=== PATIENT | male | born 1960 | race Caucasian/White ===

== ENCOUNTER 2024-01-08 14:44 | Inpatient (IN) | payer OTHER, SELFPAY ==
[2024-01-08] VITALS (15 sets, daily range): BP systolic 109–141; BP diastolic 52–80; PULSE 98–120; BMI 25.9
[2024-01-08 12:21] LABS: ALT (SGPT) 53 U/L (0-50); AST (SGOT) 39 U/L (17-59); Albumin 4.1 g/dl (3.5-5.0); Alkaline Phosphatase 36 U/L (38-126); Blood Urea Nitrogen 44 mg/dl (9-20); Calcium 8.6 mg/dl (8.4-10.2); Carbon Dioxide 22 mmol/L (22-30); Chloride 103 mmol/L (98-107); Estimated Creatinine Clearance 92 ml/min; Glucose 254 mg/dl (70-99); Lipase 42 U/L (23-300); Potassium 4.4 mmol/L (3.5-5.1); Sodium 133 mmol/L (135-145); Total Bilirubin 0.5 mg/dl (0.2-1.3); Total Protein 5.8 g/dl (6.3-8.2); eGFR > 60.00
[2024-01-08 12:31] LABS: % Basophils 0.6 % (0-2); % Eosinophils 1.3 % (0-6); % Immature Granulocytes 0.8 % (0-0.5); % Lymphocytes 14.8 % (20.5-51.1); % Monocytes 5.9 % (1.7-9.3); % Neutrophils 76.6 % (42.2-75.2); Absolute Basophils 0.1 10^3/uL (0-0.2); Absolute Eosinophils 0.1 10^3/uL (0-0.7); Absolute Immature Granulocytes 0.1 10^3/uL (0-0.05); Absolute Lymphocytes 1.2 10^3/uL (1.2-3.4); Absolute Monocytes 0.5 10^3/uL (0.1-0.6); Absolute Neutrophils 6.3 10^3/uL (1.4-6.5); Hematocrit 21.5 % (39.0-52.0); Hemoglobin 7.8 g/dL (13.0-18.0); Mean Corp Hgb Conc. 36.3 g/dL (33.0-37.0); Mean Corpuscular Volume 85.3 fL (80.0-94.0); Mean Platelet Volume 11.2 fL (7.4-10.4); Nucleated Red Blood Cells % 0.5 % (-); Platelet Count 168 10^3/uL (130-400); Red Blood Cell Count 2.52 10^6/uL (4.70-6.10); Red Cell Dist. Width 12.8 % (11.5-14.5); White Blood Cell Count 8.2 10^3/uL (4.8-10.8)
[2024-01-08 12:32] LABS: Troponin I < 0.012 ng/ml
--- NOTE | 2024-01-08 13:55 | ED.GENMED ---
History of Present Illness
General
Chief Complaint: Breathing Problem
Source: patient
Time Seen by Provider: 01/08/24 12:02
History of Present Illness
History of Present Illness:
63-year-old male presents emergency room complaining of shortness of breath. Patient states he feels short breath particular with exertion. He denies any chest pain. He denies any vomiting. He has not noted any swelling. He does have a
significant history of coronary artery disease with a stent as well as peripheral vascular disease. He does take Brilinta because of stents. Those procedures were performed at [facility]. He denies any fever or cough.
Past History
Past History
ED Past Medical History: Hypercholesterolemia and Other (Bailey Palsy)
ED Past Surgical History: None
Social History
Tobacco: Smoker (cigars-1 daily)
Alcohol: None
Personal:
Living: with family
Employment: Employed
Phy Exam
Physical Exam
Physical Exam:
General: Awake, Alert, Oriented X3. No acute distress. Patient appears quite pale
Vitals: unremarkable
Head: Atraumatic
Eyes: Pupils equal, EOMI, pale conjunctiva
Throat: Airway intact, no exudates
Neck: Trachea midline
Lungs: Clear and equal b/l
Heart: Regular rate, no murmurs
Abd: Soft, Nontender, No pulsatile mass
Rectal: Scant stool in the vault but heme positive
Neuro: Nonfocal
Skin: Warm, dry, no rash
Extremities: pulses equal b/l, no edema
Scores
Heart Failure Risk
Heart Failure Risk Score: Not Applicable
Course
Orders/Labs/Results
Orders:
Orders
01/08/24 11:36
Electrocardiogram (*1) Urgent
Reason for Study: Shortness of Breath
EKG- Treatment ONCE
01/08/24 12:00
Complete Blood Count/With Diff Urgent
Comprehensive Metabolic Panel Urgent
Lipase Urgent
Troponin I Urgent
01/08/24 12:22
Type+Screen Urgent
01/08/24 13:33
CR Chest Single View Urgent
Reason For Exam: sob
01/08/24 13:44
Blood Bank Products [* Blood Bank Products] Urgent
Blood Bank Products: *Packed RBC Leuko(PRBC's)
Quantity: 1
Transfuse Today: Yes
Reason: Bleeding
Pantoprazole 80 mg/100 ml Nss [Protonix] 80 mg in 100 ml IV NOW
Pantoprazole [Protonix IV] 80 mg IV NOW STA
01/08/24 13:48
IV Insert/Care/Rem.- Treatment PRN
01/08/24 14:12
Admit/Transfer Patient As Directed
Co-Sign Provider:
Level of Care: Inpatient admission
Assign to:: Medical/Surgical
Physician / Group: Ashlie
Diagnosis: Symptomatic anemia
Reason for Hospitalization: Symptomatic anemia/Gi bleed
Expected length of stay greater than two midnights?: Yes
ELOS- Estimated Length of Stay in days: 5
I certify the patient meets the requirements for IP care: Yes
01/08/24 14:31
Code Status As Directed
Resuscitation Status: Full Code
01/08/24 14:44
Ondansetron Injectable [Zofran] 4 mg IV Q6HPRN PRN
01/08/24 Dinner
Full Liquids
Flush Continuous pump feedings with water (mL/hr): 25
01/08/24 18:00
Pravastatin Sodium [Pravachol] 40 mg PO QPM
01/08/24 22:00
Ezetimibe [Zetia] 10 mg PO HS
01/09/24 08:00
Escitalopram Oxalate [Lexapro] 10 mg PO DAILY
Lisinopril [Zestril] 5 mg PO DAILY
Abnormal Lab Results
01/08/24 01/08/24
12:00 12:22
RBC 2.52 L 10^6/uL
(4.70-6.10)
Hgb 7.8 L g/dL
(13.0-18.0)
Hct 21.5 L %
(39.0-52.0)
MPV 11.2 H fL
(7.4-10.4)
Abs Immat Gran (auto) 0.1 H 10^3/uL
(0-0.05)
Immature Gran % 0.8 H %
(0-0.5)
Neutrophils % 76.6 H %
(42.2-75.2)
Lymphocytes % 14.8 L %
(20.5-51.1)
Sodium 133 L mmol/L
(135-145)
BUN 44 H mg/dl
(9-20)
Glucose 254 H mg/dl
(70-99)
ALT 53 H U/L
(0-50)
Alkaline Phosphatase 36 L U/L
(38-126)
Total Protein 5.8 L g/dl
(6.3-8.2)
Crossmatch IS Only See Detail
01/08/24 12:00
01/08/24 12:00
Vital Signs
Initial and Last Documented VS:
Initial Vital Signs
Temp Pulse Resp Pulse Ox
98.0 F 129 18 99
01/08/24 11:32 01/08/24 11:32 01/08/24 11:32 01/08/24 11:32
Last Documented Vital Signs
Temp Pulse Resp Pulse Ox
98.0 F 129 18 100
01/08/24 11:32 01/08/24 11:32 01/08/24 11:32 01/08/24 12:07
MDM/Problems Addressed
Differential Diagnosis Includes:
Anemia, heart failure, PE. Once patient confirmed to be anemic differential includes upper GI bleed from gastritis or peptic ulcer or lower GI bleed
MDM/Problems Addressed:
Patient presents with shortness of breath with exertion. He has a resting tachycardia. He appears pale. Rectal exam is heme positive. Review of patient's labs show a hemoglobin of 7.8. BUN is elevated with a normal creatinine supporting the
concept of an upper GI bleed. Protonix bolus and infusion given. Unit of blood ordered. GI contacted. Patient will require hospitalization for careful monitoring.
*Radiology
Radiology exam reviewed: preliminary read by ED provider
*Pulse Oximetry
Patient hypoxic: no
*EKG
Interpreted by ED Provider?: Yes
Heart Rate: 112
Rate: tachycardiac
Rhythm: sinus tachycardia
[place]: normal axis
Interval: normal interval
QRS Pattern: normal QRS
Ischemia: no ischemia
*Eyelet Row Marker Interpretation
Rate: tachycardiac
Rhythm: sinus tachycardia
*Critical Care Note
Total Time (30-74mins, 75-104mins- exclusive of procedures): 35 min
comment:
Critical care statement: A total of 35 minutes of critical care time was provided for this patient. This includes management of unstable vital signs, evaluation of the patient at bedside, reviewing the patient's pertinent medical records, discussion
with consultants, review of old EKGs and review of pertinent medical records. This time with separate from time utilized to perform the aforementioned documented procedures
ED Attending Note
-
Portions of this chart may have been created with voice recognition software.� Occasional wrong word or��sound alike� substitutions may have occurred due to the inherent limitations of voice recognition software.
Discharge Plan
Departure
Patient Disposition: Admit
Date of Disposition: 01/08/24
Time of Disposition: 13:55
Admit to: IMU
Presentation/result/management discussed w/ accepting MD/DO: Hospitalist
Condition: Fair
Discharge Problem:
Acute upper GI bleed, Symptomatic anemia
Interventions
Interventions:
*Risk Screen - Suicide Last Done: 01/08/24 12:09
*General Assessment Last Done: 01/08/24 11:32
*Neglect/Abuse Screening Last Done: 01/08/24 12:09
ED- Fall Risk Assessment Last Done: 01/08/24 12:07
*ED COVID-19 Vaccine History Last Done: 01/08/24 11:32
ED- Cardiac Assessment Last Done: 01/08/24 12:07
ED- Pulmonary Assessment Last Done: 01/08/24 12:07
[2024-01-08] MEDS: PROTONIX 100 IV ×2 (14:06→23:58)
[2024-01-08] MEDS: PROTONIX IV 80 MG IV (14:06)
--- NOTE | 2024-01-08 14:20 | CON.GI ---
Consultation
-
Date/Time Consultation Requested: 01/08/24 at 2pm
Date/Time Consultation Performed: 01/08/24 at 2pm
Requesting Provider: Vicki
Performing Provider: Abbe
Reason for Consultation: anemia
Medical History
Chief Complaint / HPI
Chief Complaint: fatigue
History of Present Illness:
This patient is a 63-year-old man with a history of coronary artery disease with a stent on Brilinta and aspirin, hypercholesterolemia who has had 5 days of fatigue. He states it started approximately on Wednesday when he has had severe heartburn and
then since that time he is felt fatigued. He has had no hematemesis. He did have 2 episodes of vomiting earlier today when he felt fatigued there is no blood in the emesis. He has not had no blood per rectum. He does not take NSAIDs besides
aspirin. He has never had an endoscopy. He does not drink alcohol. He has never had a colonoscopy and he does not have a family history of GI cancers. He does not remember his last dose of Brilinta.
Past Medical History
Past Medical History: Other (Coronary artery disease with a stent, hypercholesterolemia, Puentes's palsy,)
Past Surgical History: None
Social History
Tobacco: Other (Daily cigar)
Alcohol: Occasional
Family History
Family History: Reviewed & Not Pertinent
Allergies / Home Medications
Allergy/AdvReac Type Severity Reaction Status Date / Time
No Known Allergies Allergy Verified 01/08/24 11:35
�Medication �Instructions �Recorded
prednisone 50 mg tablet 50 mg PO DAILY #7 tabs 05/28/19
Review of Systems
-
All other systems: A 12 pt ROS was Negative except as stated above in HPI
Vital Signs
Temp Pulse Resp Pulse Ox
98.0 F 129 18 100
01/08/24 11:32 01/08/24 11:32 01/08/24 11:32 01/08/24 12:07
Physical Exam
Exam
General: No Apparent Distress
HEENT: Anicteric
Cardiac: S1/S2
GI: Soft and Non Tender
Skin: Warm
Neuro: AO x 3
Psych: Calm
Results
WBC 8.2 10^3/uL (4.8-10.8) 01/08/24 12:00
Hgb 7.8 g/dL (13.0-18.0) L 01/08/24 12:00
Hct 21.5 % (39.0-52.0) L 01/08/24 12:00
MCV 85.3 fL (80.0-94.0) 01/08/24 12:00
Plt Count 168 10^3/uL (130-400) 01/08/24 12:00
Absolute Neuts (auto) 6.3 10^3/uL (1.4-6.5) 01/08/24 12:00
Sodium 133 mmol/L (135-145) L 01/08/24 12:00
Potassium 4.4 mmol/L (3.5-5.1) 01/08/24 12:00
Chloride 103 mmol/L (98-107) 01/08/24 12:00
Carbon Dioxide 22 mmol/L (22-30) 01/08/24 12:00
BUN 44 mg/dl (9-20) H 01/08/24 12:00
Creatinine 0.7 mg/dL (0.7-1.3) 01/08/24 12:00
Calcium 8.6 mg/dl (8.4-10.2) 01/08/24 12:00
Total Bilirubin 0.5 mg/dl (0.2-1.3) 01/08/24 12:00
AST 39 U/L (17-59) 01/08/24 12:00
ALT 53 U/L (0-50) H 01/08/24 12:00
Alkaline Phosphatase 36 U/L (38-126) L 01/08/24 12:00
Lipase 42 U/L (23-300) 01/08/24 12:00
Assessment / Plan
-
This patient is a 63-year-old man with a history of fatigue, emesis which was nonbloody and heartburn. He has a markedly elevated BUN to creatinine ratio and his presentation is most consistent with an upper GI bleed which is likely chronic in
nature at least 5 days. His hemoglobin is 7.8 which is quite lower than his normal baseline from what we have. For now I would do the following;
1. PPI drip
2. N.p.o.
3. Transfuse 1 to 2 units of packed red blood cells and monitor his hemoglobin
4. EGD on Wednesday as she likely has Brilinta on board as well. His will find out when his last dose was. If however he needs an endoscopy more urgently this will be done.
5. He eventually needs a colonoscopy as he has never had one
-
-
Thank you for consultation and allowing me to participate in the patient's care. Please call the communications attendant GI physician during the after hours with any questions or concerns.
--- NOTE | 2024-01-08 14:37 | HPS.HSE ---
Addendum entered and electronically signed by Stephen Dailey MD 01/08/24 15:11:
look like -pat had syncope or near Syncope while getting CXR but did not hit the ground.likely sec to hypovolimia and anemia
his BP was 120/62 immediately, HR 119;
did not get any fluid yet and did not start Blood transfusion
will place him on cardiac monitoring
give him 500 ml bolus and blood should start soon according to the nurse
continue NS at 100 ml/hr
check troponin
GI wants him be NPO.
All discussed with the nurse
Original Note:
Family Physician
-
Family Physician: Ángel Ramirez
Chief Complaint
-
Generalized weakness and exertional shortness of breath
History of Present Illness
63-year-old male with history of coronary artery disease status post 2 stent to LAD placed in November 2021, diabetes, hypertension, dyslipidemia presented to the hospital complaining of feeling tired with exertional shortness of breath and easy
fatigability notes a week ago.
Denies any chest pain, but the symptoms are worse with any kind exertional straining and sometimes he felt some palpitation, denies any syncope admit dizziness, no weakness or numbness in extremities, symptoms are progressively worsening and he was
debating came to the hospital few nights ago as he woke up with severe epigastric pain and burning but look like went away on its own and decided to not, he has been having dark stool but he blamed it on diet specially been eating a lot of beef this
week while prior to this week he had that his stool color has been normal.
Earlier this morning he felt very weak and lousy and the notes the first time this morning that he is pale look like he threw up what sound like coffee ground material couple times today, they went to urgent care and they basically directed him
to the ER.
Hemoglobin is 7.8 and the last time he had a workup in his portal was May 2023 and hemoglobin was more than 13.
Denies taking any NSAID, he smokes 1 cigar daily, occasionally drinks some wine, and spicy food regularly, denies any weight change.
The right EGD or colonoscopy, the last time he had a Cologuard was 2 years ago and basically was negative. Denies any extra stress or anxiety
Usual daily life issues.
He is awake, alert and oriented x 3 hold appropriate conversation, accompanied by the at the bedside. Seen by residential advisor already in the ER been planning EGD and or colonoscopy on Wednesday.
He is awake, alert and oriented x 3. Conversation, other than mild tachycardia his blood pressure in the good range, the unit of blood ordered also started on Protonix drip.
Medical History
Past Medical History
Past Medical History: Reports Other
Additional Past Medical History:
Past medical history reviewed:
Coronary artery disease status post 2 stent placed in November 2021 and LAD
Diabetes mellitus
Hypertension
Dyslipidemia
Mood disorder
Social history: lives with his , smokes 1 cigar daily, occasionally drinks some red wine and no drug and is independent.
Family history: Reviewed and noncontributory
Past Surgical History: Reports Other
Social History
Unable to obtain full social history at this time due to: Other
Family History
Family History: Other
Allergies / Home Medications
Allergies reflects when Allergies were last updated in [facility].
Home Medications with original date entered in [facility]
Allergy/Medication List:
Home medication. Recording from the patient and his
Jardiance 25 mg daily
Aspirin 81 mg daily
Vascepa 1 g tablet 62 g morning and 2 in the evening
Metformin 1000 mg twice daily
Brilinta 90 twice a day
Pravastatin 40 mg at the bedside
Lexapro 10 mg daily
Zetia 10 mg at bedside
Mometasone for rate once a day
Lisinopril 5 mg daily
Review of Systems
-
A 12 point ROS was completed and negative except as noted: Yes
Physical Exam
Vital Signs
Vital Signs
Temp Pulse Resp Pulse Ox
98.0 F 129 18 100
01/08/24 11:32 01/08/24 11:32 01/08/24 11:32 01/08/24 12:07
Physical exam:
General: Pale looking, awake, alert and oriented x3, not in distress and holds appropriate conversation.
HEENT: No active discharge, ecchymosis or bruising, moist lips, tongue and mucous membrane.
Eyes: No discharge or red conjunctiva, no nystagmus, pupils are reactive and equal
Neck:Supple, no JVD no bruit no goiter.
Respiratory: Normal AP contour and diameter, normal chest wall movement, normal respiratory effort, no respiratory distress,
Lungs: Good air entry bilaterally, no wheezing or rhonchi, no rales or crackles
Heart: S1, S2 regular, mildly tachycardic, no added sound.
Gastrointestinal: Positive bowel sounds, soft, nontender, no guarding or rigidity or organomegaly
Musculoskeletal: , no chest wall abnormality or tenderness. All joints and extremities have good range of motion, no muscle tenderness or any joint swelling or tenderness.
Extremities: No pitting edema, good peripheral pulses, good range of motion
Skin: Warm and dry, no ulceration, pale skin
Neurological: Awake, alert and oriented x3, no facial droop, speech clear and comprehensive, good muscle tone, normal sensory and motor function
Psychiatric: Normal mood, normal thought and judgment, normal affect,
Physical Exam
General: Other
Laboratory Results
-
01/08/24 12:00
01/08/24 12:00
Laboratory Results
Total Bilirubin 0.5 mg/dl (0.2-1.3) 01/08/24 12:00
AST 39 U/L (17-59) 01/08/24 12:00
ALT 53 U/L (0-50) H 01/08/24 12:00
Alkaline Phosphatase 36 U/L (38-126) L 01/08/24 12:00
Troponin I < 0.012 ng/ml 01/08/24 12:00
Lipase 42 U/L (23-300) 01/08/24 12:00
EKG shows sinus tachycardia rate around 112, SD 132, QTc 439 otherwise no acute abnormalities
Data Reviewed
-
Medical Tests (Nuc Med, Echo, EKG etc): Report Reviewed by me, Discussed with Patient and Discussed with Family
Lab Data: Labs Reviewed by me, Discussed with Patient and Discussed with Family
Old Records: Reviewed
Impression/Plan
-
IMPRESSION:
63-year-old male with history of CAD, hypertension dyslipidemia, presented to the hospital with exertional shortness of breath and fatigue, likely secondary to anemia, concern for GI blood loss anemia was concerning for upper GI.
Eliquis made to be considered, doubt cardiac causes.
Acute anemia, likely blood loss anemia
GI bleed
Symptomatic anemia
Sinus tachycardia
Exertional shortness of breath
Coronary artery disease status post 2 stent
Diabetes
Hypertension
Dyslipidemia
PLAN:
1 unit of blood is ordered will transfuse
Monitor H&H every 8 hours starting around 7 PM today pending the time of blood transfusion
Full liquid diet for now and monitor
Nausea medication
Continue normal saline 100 mill per hour
Monitor vital sign closely
GI consulted nurse of the patient they planning EGD and a colonoscopy on Wednesday
Check iron panel, B12 and folic acid.
Hold aspirin and Brilinta
Hold Jardiance and metformin as discussed with the patient
Monitor blood sugar.
Advised about staying away including cigar risks of the condition explained and expressed understanding
All discussed with the patient in detail expressed understanding
Discussed with the
All the question answered
CODE STATUS full code
DVT prophylaxis SCD
[2024-01-08] MEDS: ZOFRAN 4 MG IV (14:45)
[2024-01-08] MEDS: NSS 500 IV (15:18)
[2024-01-08 17:14] LABS: Troponin I 0.015 ng/ml
[2024-01-08] MEDS: NSS 1000 IV (17:50)
[2024-01-08] MEDS: PRAVACHOL 40 MG PO (17:51)
[2024-01-08 18:05] LABS: Glucose - Point of Care 205 mg/dl (70-99)
[2024-01-08] MEDS: NOVOLOG FLEXPEN-MODERATE RESISTANCE 3 UNITS SC (18:17)
[2024-01-08 21:08] LABS: Hemoglobin 7.3 g/dL (13.0-18.0)
[2024-01-08 21:32] LABS: Hematocrit 19.8 % (39.0-52.0)
[2024-01-08] MEDS: ZETIA 10 MG PO (21:34)
[2024-01-08 21:41] LABS: Troponin I < 0.012 ng/ml
--- NOTE | 2024-01-08 22:04 | PTCARENOTE ---
Recheck of hemoglobin following 1 unit blood this evening resulted 7.3. Hemoglobin on admission was 7.8. No active bleeding at this time, no complaints from patient. VSS. Notified GYPSY Miranda -- will monitor labs and vitals, next hgb to be
checked in 8 hours. Will monitor closely.
[2024-01-09] VITALS (11 sets, daily range): BP systolic 87–120; BP diastolic 48–72; PULSE 81–98; BMI 26.0
[2024-01-09 00:21] LABS: Glucose - Point of Care 180 mg/dl (70-99)
[2024-01-09] MEDS: NOVOLOG FLEXPEN-MODERATE RESISTANCE SC (00:40)
[2024-01-09 04:01] LABS: Hematocrit 18.7 % (39.0-52.0); Hemoglobin 6.7 g/dL (13.0-18.0)
[2024-01-09 04:22] LABS: Troponin I < 0.012 ng/ml
--- NOTE | 2024-01-09 04:22 | W.PN.UPDATE ---
Update Note
Progress Note Update
Hgb level dropped down from 7.3 to 6.7, no sign of active bleeding, vital signs within normal limits. One unit of blood ordered, will continue monitoring h&h and will transfer as needed.
[2024-01-09] MEDS: NSS 1000 IV ×2 (05:35→15:11)
[2024-01-09 06:07] LABS: Glucose - Point of Care 205 mg/dl (70-99)
[2024-01-09] MEDS: NOVOLOG FLEXPEN-MODERATE RESISTANCE 3 UNITS SC (06:37)
--- NOTE | 2024-01-09 06:44 | PTCARENOTE ---
1 unit PRBCs transfusing, patient tolerating without issue at this time. Patient is currently asleep and resting comfortably. Will monitor.
--- NOTE | 2024-01-09 08:21 | W.PN.GI.CBS2 ---
Today's Communication / Plan
-
EGD in am
Assessment / Plan
-
This patient is a 63-year-old man with a history of fatigue, emesis which was nonbloody and heartburn. He has a markedly elevated BUN to creatinine ratio and his presentation is most consistent with an upper GI bleed which is likely chronic in
nature at least 5 days. His hgb has remained low but he not tachycardic now. For now I would do the following;
1. PPI drip
2. N.p.o.
3. Transfuse 1 to 2 units of packed red blood cells and monitor his hemoglobin
4. EGD on Wednesday
5. hold brilinta and hospitalist to get cardiology to comment on need d/w Dr. Dailey
6. continue monitoring
7. He eventually needs a colonoscopy as he has never had one
Subjective
Subjective
Date of Service: January 09, 2024
Pt weak but no bleeding. no abdominal paini
Objective
Data Reviewed
Laboratory Data:
Laboratory Results
Total Bilirubin 0.5 mg/dl (0.2-1.3) 01/08/24 12:00
AST 39 U/L (17-59) 01/08/24 12:00
ALT 53 U/L (0-50) H 01/08/24 12:00
Alkaline Phosphatase 36 U/L (38-126) L 01/08/24 12:00
Lipase 42 U/L (23-300) 01/08/24 12:00
Vital Signs and I&O:
Vital Signs
Temp Pulse Resp BP Pulse Ox
98.4 F 88 18 111/62 98
01/09/24 05:37 01/09/24 05:37 01/09/24 05:37 01/09/24 05:37 01/09/24 05:37
I&O
01/08/24 01/09/24 01/10/24
06:59 06:59 06:59
Intake Total 250 / 250
Output Total 550 / 550
Balance -300 / -300
Physical Exam
Physical Exam
GI: Soft, Non Distended and Non Tender
[2024-01-09] MEDS: LEXAPRO 10 MG PO (08:27)
[2024-01-09] MEDS: ZESTRIL 5 MG PO (08:27)
[2024-01-09] MEDS: PROTONIX 100 IV ×2 (09:42→20:03)
--- NOTE | 2024-01-09 10:25 | W.PN.HOSP.TC ---
Today's Communication/Plan
-
.
Assessment / Plan
Assessment / Plan
Physical exam:
General: not in distress and holds appropriate conversation.
HEENT: No active discharge, ecchymosis or bruising, moist lips, tongue and mucous membrane.
Eyes: No discharge or red conjunctiva, no nystagmus, pupils are reactive and equal
Neck:Supple, no JVD no bruit no goiter.
Lungs: Good air entry bilaterally, no wheezing or rhonchi, no rales or crackles
Heart: S1, S2 regular
Gastrointestinal: Positive bowel sounds, soft, nontender, no guarding or rigidity
Musculoskeletal: , no chest wall abnormality or tenderness. , no muscle tenderness or any joint swelling or tenderness.
Extremities: No pitting edema, good peripheral pulses, good range of motion
Skin: Warm and dry, no ulceration, pale skin
Neurological: Awake, alert and oriented x3, no facial droop, speech clear and comprehensive. Non focal exam.
Psychiatric: Normal mood, normal thought and judgment, normal affect.
63-year-old male with history of CAD, hypertension dyslipidemia, presented to the hospital with exertional shortness of breath, fatigue and anemia:
#Acute blood loss anemia due to GI bleed
Symptomatic anemia/ Sinus tachycardia/ Exertional shortness of breath
No recurrent bleeding
s/p 2 unit of RBCs.
Monitor H&H later today after transfusion and in AM.
Hold aspirin and Brilinta
d/w GI doctor, plan for upper endoscopy evaluation in AM
Appreciate GI input
# Coronary artery disease status post 2 stent
He follows at [facility] cardiology
Holding anti-platelets therapy ( had stents in 2021)
No chest pain
Consulted cardiology, pt might not need to be on dual therapy
Will try to get records
#Primary Hypertension
# Dyslipidemia
# Hyponatremia
mild
No confusion
CODE STATUS full code
DVT prophylaxis SCD
Total time spent to see the patient, examine the patient, review data and lab results, and discuss the treatment plan with patient, nurse around 55 minutes
Anticipated Discharge: 24 - 48 hours
Subjective/Interval History
-
Date of Service: January 09, 2024
No abd pain
No chest pain
No rectal bleeding
No nausea
Objective Data
-
Labs:
Laboratory Results
01/09/24 01/09/24
03:50 09:57
WBC Pending
Hgb 6.7 L* Pending
Hct 18.7 L* Pending
Plt Count Pending
Sodium Pending
Potassium Pending
Chloride Pending
Carbon Dioxide Pending
BUN Pending
Creatinine Pending
Glucose Pending
Calcium Pending
Vital Signs:
Vital Signs
Temp Pulse Resp BP Pulse Ox
98.2 F 91 18 107/67 100
01/09/24 09:04 01/09/24 09:04 01/09/24 09:04 01/09/24 09:04 01/09/24 09:04
I&O
01/08/24 01/09/24 01/10/24
06:59 06:59 06:59
Intake Total 250 / 250 250 / 250
Output Total 550 / 550
Balance -300 / -300 250 / 250
[2024-01-09 12:04] LABS: Iron 85 ug/dl (49-181); Magnesium 1.8 mg/dl (1.6-2.3)
[2024-01-09 12:12] LABS: Percent Saturation 30 % (20-50); Total Iron Binding Capacity 278 ug/dl (261-462)
[2024-01-09 12:15] LABS: Glucose - Point of Care 181 mg/dl (70-99)
[2024-01-09] MEDS: NOVOLOG FLEXPEN-MODERATE RESISTANCE 1 UNITS SC ×2 (12:16→18:33)
[2024-01-09 12:35] LABS: TSH 1.01 uIU/ml (0.47-4.68)
[2024-01-09 12:39] LABS: Ferritin 90.5 ng/ml (17.9-464.0)
[2024-01-09 13:10] LABS: Folate 18.2 ng/ml (2.76-20); Vitamin B12 255 pg/ml (239-931)
--- NOTE | 2024-01-09 13:14 | CON.CAR ---
Consultation
Consultation Request
Date/Time Consultation Requested: 01/09/24 8:00AM
Date/Time Consultation Performed: 01/09/24 12:30 AM
Requesting Provider: Dr Neal
Performing Provider: Dr Yancey
Reason for Consultation: bleeding/CAD
Medical History
-
Chief Complaint: sob/fatigue
History of Present Illness:
63-year-old male with past medical history of coronary artery disease with PCI 2021 at length and all presents to [facility] with fatigue, dyspnea on exertion, anemia and GI bleed. He states for several weeks he has noticed tiredness and
poor energy is also noticed some shortness of breath when climbing stairs. He denies any chest pains. He also had some nausea and vomiting. Upon arrival in the emergency room he was found to have a hemoglobin of 7.8. He was taking both aspirin
and Brilinta. He was also found to have some mild hyponatremia. He is getting transfused 2 units of packed red blood cells. He is currently resting company bed with no orthopnea, PND, or edema.
Past Medical History
Past Medical History: CAD (PCI in 2021 at [facility], [facility]), HTN and Hypercholesterolemia
Social History
Tobacco: Non-Smoker
Drug: None
Living: With Family
Family History
Family History: Hypertension
Allergies / Home Medications
Allergy/AdvReac Type Severity Reaction Status Date / Time
No Known Allergies Allergy Verified 01/08/24 11:35
�Medication �Instructions �Recorded �Confirmed �Type
prednisone 50 mg tablet 50 mg PO DAILY INFLAMMATION 01/09/24 History
Review of Systems
-
History Source: Patient
Constitutional: Fatigue
EENT: No Symptoms
Respiratory: Trouble Breathing
Cardiac: No Symptoms
Abdomen/GI: Nausea, Vomiting and Black Stools
: No Symptoms
Musculoskeletal: No Symptoms
Skin: No Symptoms
Neurological: No Symptoms
Endocrine: No Symptoms
Hematologic/Lymphatic: No Symptoms
Physical Exam
Vital Signs
Temp Pulse Resp BP Pulse Ox
98.3 F 84 16 110/61 99
01/09/24 11:01 01/09/24 11:01 01/09/24 11:01 01/09/24 11:01 01/09/24 11:01
Lab Results
01/09/24 09:57
Troponin I Cancelled 01/09/24 09:57
Physical Exam
General: Well Developed, Well Nourished and No Apparent Distress
HEENT: Normocephalic and Moist Mucous Membranes
Respiratory: Clear and Non Labored Respirations
Cardiac: S1/S2 and Regular Rhythm
GI: Soft, Non Tender and Non Distended
Genito-urinary: No Costovertebral Tender
Skin: Warm and Dry
Neuro: Awake
Psych: Calm
Impression / Plan
-
Assess:
Symptomatic anemia/GI bleed
Coronary artery history of LAD stent 2021
Hypertension
Hyperlipidemia
PVD
PLan:
He presents with symptomatic anemia and GI bleed. His stent is over 1-year-old. Okay to hold Brilinta. Will hold aspirin until bleeding stops then resume aspirin. He is stable to proceed with EGD.
Will hold off on resuming Brilinta for now. He can discuss this further long-term with his outpatient central aisle cashier at [facility]
Agree with transfusion and follow hemoglobin
Continue lisinopril, pravastatin, and Zetia.
Data Reviewed
-
EKG: Report Reviewed by me
Medical Tests (Nuc Med, Echo etc): Report Reviewed by me
Labs: Labs Reviewed by me
Old Records: Requested
--- NOTE | 2024-01-09 15:12 | CM ---
Initial Assessment completed
Pharmacy verified: [facility], [address]
GI Bleed; scheduled for EGD tomorrow
Patient and spouse live in a multilevel home; 3 steps to enter; 12-13 steps to 2nd floor; powder room on 1st floor; 2nd floor bath has stall shower
Independent with ambulation and ADLs; having SOB going up stairs; Drives
DME: none
NO SNF/Home Health history
Transport: will provide ride home
Plan: discharge to home when medically stable; will monitor for DC needs
[2024-01-09 16:12] LABS: Hematocrit 22.9 % (39.0-52.0); Hemoglobin 8.3 g/dL (13.0-18.0)
[2024-01-09] MEDS: PRAVACHOL 40 MG PO (17:14)
[2024-01-09 17:58] LABS: Glucose - Point of Care 157 mg/dl (70-99)
[2024-01-09] MEDS: ZETIA 10 MG PO (21:02)
[2024-01-09 22:00] LABS: Hemoglobin 8.1 g/dL (13.0-18.0)
[2024-01-10] VITALS (7 sets, daily range): BP systolic 16–116; BP diastolic 48–66
[2024-01-10 00:42] LABS: Glucose - Point of Care 141 mg/dl (70-99)
[2024-01-10] MEDS: NOVOLOG FLEXPEN-MODERATE RESISTANCE SC (01:02)
--- NOTE | 2024-01-10 03:48 | PTCARENOTE ---
Pt informed this RN that during dayshift at 1130 pt had a moderate bloody BM. Plan of care ongoing.
[2024-01-10] MEDS: PROTONIX 100 IV (06:18)
[2024-01-10 06:22] LABS: Glucose - Point of Care 157 mg/dl (70-99)
[2024-01-10] MEDS: NOVOLOG FLEXPEN-MODERATE RESISTANCE 1 UNITS SC (06:22)
[2024-01-10 07:21] LABS: Hematocrit 22.9 % (39.0-52.0); Hemoglobin 8.1 g/dL (13.0-18.0); Mean Corp Hgb Conc. 35.4 g/dL (33.0-37.0); Mean Corpuscular Hgb 29.6 pg (27.0-31.0); Mean Corpuscular Volume 83.6 fL (80.0-94.0); Mean Platelet Volume 10.4 fL (7.4-10.4); Platelet Count 111 10^3/uL (130-400); Red Blood Cell Count 2.74 10^6/uL (4.70-6.10); Red Cell Dist. Width 14.3 % (11.5-14.5)
[2024-01-10 08:00] LABS: Blood Urea Nitrogen 14 mg/dl (9-20); Calcium 8.3 mg/dl (8.4-10.2); Carbon Dioxide 25 mmol/L (22-30); Chloride 106 mmol/L (98-107); Estimated Creatinine Clearance 107 ml/min; Glucose 134 mg/dl (70-99); Potassium 3.7 mmol/L (3.5-5.1); Sodium 136 mmol/L (135-145); eGFR > 60.00
[2024-01-10 08:28] LABS: Glycohemoglobin (HgbA1c) 6.4 % (4.0-5.6)
--- NOTE | 2024-01-10 08:56 | W.PN.CARDCBS ---
Today's Communication / Plan
-
Resume ASA as soon as ok with GI. Can continue to hold Brilinta for now as he is over 1 yr from PCI and he states over 2 yrs. He will discuss with his outside engine boss, Dr Joey Keating.
Cont to monitor H/H. Transfuse as needed.
GI following, s/p post EGD
Outpt follow up with his engine boss for CAD and regarding his PAD.
Stable cv status, Please recall if needed.
Impression / Plan
-
.
Impression:
Symptomatic anemia/GI bleed
Coronary artery history of LAD stent 2021
Hypertension
Hyperlipidemia
PAD
Plan:
He presents with symptomatic anemia and GI bleed. His stent is well over 1-year-old.
Resume ASA as soon as ok with GI. Can continue to hold Brilinta for now as he is over 1 yr from PCI and he states over 2 yrs. He will discuss with his outside engine boss, Dr Joey Keating.
Cont to monitor H/H. Transfuse as needed.
GI following, s/p post EGD
Continue lisinopril, pravastatin, and Zetia.
Outpt follow up with his engine boss for CAD and regarding his PAD.
Stable cv status, Please recall if needed.
HPI: 63-year-old male with past medical history of coronary artery disease with PCI 2021 at length and all presents to [facility] with fatigue, dyspnea on exertion, anemia and GI bleed. He states for several weeks he has noticed tiredness
and poor energy is also noticed some shortness of breath when climbing stairs. He denies any chest pains. He also had some nausea and vomiting. Upon arrival in the emergency room he was found to have a hemoglobin of 7.8 which went down to 6.7.
He was taking both aspirin and Brilinta. He was also found to have some mild hyponatremia. He is getting transfused 2 units of packed red blood cells. He is currently resting company bed with no orthopnea, PND, or edema.
Progress Note - Marketing Administrator
Subjective
Date of Service: January 10, 2024
Pt seen and examined. No complaints. No chest pain or shortness of breath.
Objective
Labs:
01/10/24 06:45
01/10/24 06:45
Labs
Hgb 8.1 g/dL (13.0-18.0) L 01/10/24 06:45
Hct 22.9 % (39.0-52.0) L 01/10/24 06:45
Plt Count 111 10^3/uL (130-400) L D 01/10/24 06:45
Sodium 136 mmol/L (135-145) 01/10/24 06:45
Potassium 3.7 mmol/L (3.5-5.1) 01/10/24 06:45
BUN 14 mg/dl (9-20) 01/10/24 06:45
Creatinine 0.6 mg/dL (0.7-1.3) L 01/10/24 06:45
Glucose 134 mg/dl (70-99) H 01/10/24 06:45
Troponins
01/08/24 01/08/24 01/08/24
12:00 16:21 21:01
Troponin I < 0.012 0.015 D < 0.012
01/09/24 01/09/24
03:50 09:57
Troponin I < 0.012 Cancelled
Vital Signs and I&O:
Vital Signs
Temp Pulse Resp BP Pulse Ox
97.9 F 90 17 104/48 98
01/10/24 07:00 01/10/24 07:00 01/10/24 07:00 01/10/24 07:00 01/10/24 07:00
Vital Signs
Temp Pulse Resp BP Pulse Ox
97.9 F 90 17 104/48 98
01/10/24 07:00 01/10/24 07:00 01/10/24 07:00 01/10/24 07:00 01/10/24 07:00
Intake & Output
01/08/24 01/09/24 01/10/24 01/11/24
06:59 06:59 06:59 06:59
Intake Total 250 / 250 610 / 610
Output Total 550 / 550 1025 / 1025
Balance -300 / -300 -415 / -415
Physical Exam
Physical Exam
General: No acute distress, AAOX3
Neck: Negative JVD
Heart: Regular, Negative S3 positive S1/S2, Negative S4, No murmur
Lungs: CTA b/l, negative wheezes/rales/rhonchi
Abd: Positive BS, NT/ND, neg rebound/rigidity/guarding
Ext: Negative cyanosis/clubbing/edema
Neuro: nonfocal
[2024-01-10 10:04] LABS: Glucose - Point of Care 158 mg/dl (70-99)
[2024-01-10] MEDS: ZESTRIL PO (11:16)
[2024-01-10] MEDS: LEXAPRO PO (11:16)
--- NOTE | 2024-01-10 13:10 | W.PN.HOSP.TC ---
Today's Communication/Plan
-
dc home
Assessment / Plan
Assessment / Plan
Physical exam:
NAD, resting comfortably in bed
Scleral anicteric
Moist mucous membranes
No JVD
CTA bilateral
Normal S1-S2 no murmurs
Soft nontender nondistended bowel sounds active
No peripheral pitting edema
Moves extremities spontaneously
AAOx3
63-year-old male with history of CAD, hypertension dyslipidemia, presented to the hospital with exertional shortness of breath, fatigue and anemia:
#Acute blood loss anemia due to GI bleed
Symptomatic anemia/ Sinus tachycardia/ Exertional shortness of breath
No recurrent bleeding
s/p 2 unit of RBCs.
Monitor H&H later today after transfusion and in AM.
Discontinue Brilinta indefinitely
Resume aspirin per GI recommendations�baby aspirin
S/p EGD, tolerated procedure well
Findings:
The examined esophagus was normal.
The entire examined stomach was normal. Biopsies were taken with a cold
forceps for histology.
One non-bleeding clean based duodenal ulcer with no stigmata of bleeding
was found in the duodenal bulb. There was erythema surrounding the
ulcer. The lesion was 8 mm in largest dimension.
# Coronary artery disease status post 2 stent
He follows at [facility] cardiology
Holding anti-platelets therapy ( had stents in 2021)
No chest pain
Consulted cardiology, pt might not need to be on dual therapy
Will try to get records
#Primary Hypertension
Continue lisinopril
# Dyslipidemia
Continue statin and Zetia
# Hyponatremia
Resolved
CODE STATUS full code
DVT prophylaxis SCD
Plan to discharge home
Anticipated Discharge: Today
Subjective/Interval History
-
Date of Service: January 10, 2024
Seen and examined. No new complaints. No acute overnight events.
Objective Data
-
Labs:
Laboratory Results
01/09/24 01/10/24
11:38 06:45
WBC Cancelled 4.0 L
Hgb Cancelled 8.1 L
Hct Cancelled 22.9 L
Plt Count Cancelled 111 L D
Sodium 136
Potassium 3.7
Chloride 106
Carbon Dioxide 25
BUN 14
Creatinine 0.6 L
Glucose 134 H
Calcium 8.3 L
Vital Signs:
Vital Signs
Temp Pulse Resp BP Pulse Ox
98.7 F 85 16 110/58 98
01/10/24 11:00 01/10/24 11:00 01/10/24 11:00 01/10/24 11:00 01/10/24 11:00
I&O
01/09/24 01/10/24 01/11/24
06:59 06:59 06:59
Intake Total 250 / 250 610 / 610
Output Total 550 / 550 1025 / 1025
Balance -300 / -300 -415 / -415
--- NOTE | 2024-01-10 13:13 | W.DCSUMMARY ---
Discharge Summary
Discharge Data
Date of Admission: 01/08/24
Date of Discharge: 01/10/24
-
Pending Results: Yes
Additional Pending Results:
egd biopsy
Hospital Course
63 male history of CAD dyslipidemia diabetes hypertension presented with shortness of breath and easy fatigability.Cardiology hemoglobin 7.8 with complaints of dark stools. On Brilinta aspirin for cardiac stent history. Was evaluated by GI
recommended upper endoscopy. Was evaluated by cardiology recommended discontinuation of Brilinta. Hold aspirin until cleared by GI. Upper endoscopy completed demonstrated as below finding. Did require blood transfusion with appropriate
improvement in hemoglobin and resolution of symptomatology.
Findings:
The examined esophagus was normal.
The entire examined stomach was normal. Biopsies were taken with a cold
forceps for histology.
One non-bleeding clean based duodenal ulcer with no stigmata of bleeding
was found in the duodenal bulb. There was erythema surrounding the
ulcer. The lesion was 8 mm in largest dimension.
Outpatient GI follow-up for colonoscopy
Outpatient PCP follow-up for medication review control of comorbid conditions.
Outpatient follow-up with cardiology to discuss antiplatelet therapy ongoing.
Discharge Plan
-
Patient Disposition: Home (Routine Discharge)
Discharge Diagnosis/Procedures: Upper GI
CAD s/p PCI 12/17, diabetes, hypertension, dyslipidemia
Condition: Good
Diet: As tolerated
Additional Diets: Avoid caffeine, sodas, spicy foods, acidic foods, dark chocolate
Activity: As tolerated
Driving Restrictions: As prior to admission
Bathing Restrictions: None
Activity Restrictions/Additional Instructions:
Presented with shortness of breath and easy fatigability.Cardiology hemoglobin 7.8 with complaints of dark stools. On Brilinta aspirin for cardiac stent history. Was evaluated by GI recommended upper endoscopy. Was evaluated by cardiology
recommended discontinuation of Brilinta. Hold aspirin until cleared by GI. Upper endoscopy completed demonstrated as below finding. Did require blood transfusion with appropriate improvement in hemoglobin and resolution of symptomatology.
Findings:
The examined esophagus was normal.
The entire examined stomach was normal. Biopsies were taken with a cold
forceps for histology.
One non-bleeding clean based duodenal ulcer with no stigmata of bleeding
was found in the duodenal bulb. There was erythema surrounding the
ulcer. The lesion was 8 mm in largest dimension.
Outpatient GI follow-up for colonoscopy
Outpatient PCP follow-up for medication review control of comorbid conditions.
Outpatient follow-up with cardiology to discuss antiplatelet therapy ongoing.
Instructions: GI bleed
Referrals:
Rosalie Mcadams MD [Active] - in two to three days
(Biopsy review
Colonoscopy discussed)
Joey Yuan DO [Active] - in one to two weeks
(Discuss antiplatelet therapy after GI bleed
Follow-up with scrap shear operator at [facility])
Ángel Ramirez DO [Family Provider] -
Prescriptions:
New
escitalopram oxalate 10 mg Tablet
10 mg PO DAILY 30 Days Qty: 30 0RF
Continued
aspirin 81 mg Tablet,Delayed Release (Dr/Ec)
81 mg PO DAILY
metformin 1,000 mg Tablet
1,000 mg PO BID
lisinopril 5 mg Tablet
5 mg PO DAILY
ezetimibe [Zetia] 10 mg Tablet
10 mg PO QPM
rosuvastatin [Crestor] 40 mg Tablet
40 mg PO QPM
icosapent ethyl [Vascepa] 1 gram Capsule
2 g PO BID
Jardiance 25 mg Tablet
25 mg PO DAILY
Discontinued
Brilinta 90 mg Tablet
90 mg PO BID
Discharge Orders:
Discharge Patient (As Directed); Ordered 01/10/24
Ordered By: Delonte Saez
Discharge Date and Time
Print Language: [place]
== END 2024-01-10 13:43 | disposition home or self-care (01) | DRG 379 ==
LOC: 3 WEST ACU 14:44
PROVIDERS: Internal Medicine; ADMITTING PHYSICIAN Internal Medicine; ATTENDING PHYSICIAN Hospitalist; CONSULT PHYSICIAN Internal Medicine; EMERGENCY PHYSICIAN Emergency Medicine; FAMILY PHYSICIAN Internal Medicine Geriatric Medicine; OTHER PHYSICIAN Internal Medicine Cardiovascular Disease
PROC: 30233N1 Transfusion of Nonautologous Red Blood Cells into Peripheral Vein, Percutaneous Approach (ICD-10-PCS; 2024-01-08)
PROC: 0DB68ZX Excision of Stomach, Via Natural or Artificial Opening Endoscopic, Diagnostic (ICD-10-PCS; 2024-01-10)
DX: K92.2 Gastrointestinal hemorrhage, unspecified (principal); I25.10 Atherosclerotic heart disease of native coronary artery without angina pectoris; E11.9 Type 2 diabetes mellitus without complications; I10 Essential (primary) hypertension; E78.5 Hyperlipidemia, unspecified; K26.9 Duodenal ulcer, unspecified as acute or chronic, without hemorrhage or perforation
CPT/HCPCS: 88305; 36430; 71045; 80048; 80053; 82607; 82728; 82746; 82962; 83036; 83540; 83550; 83690; 83735; 84443; 84484; 85014; 85018; 85025; 85027; 86850; 86900; 86901; 86920; 88341; 88342; 93005; 96365; 96366; 99291; 99406; P9016

== ENCOUNTER 2024-01-15 10:52 | Emergency (ER) | payer OTHER, SELFPAY ==
[2024-01-15 10:54] VITALS: BP 114/69
[2024-01-15 11:16] VITALS: BP 122/68
[2024-01-15 12:21] LABS: % Basophils 0.6 % (0-2); % Eosinophils 3.3 % (0-6); % Immature Granulocytes 0.6 % (0-0.5); % Lymphocytes 18.6 % (20.5-51.1); % Monocytes 7.8 % (1.7-9.3); % Neutrophils 69.1 % (42.2-75.2); Absolute Eosinophils 0.1 10^3/uL (0-0.7); Absolute Lymphocytes 0.7 10^3/uL (1.2-3.4); Absolute Monocytes 0.3 10^3/uL (0.1-0.6); Absolute Neutrophils 2.5 10^3/uL (1.4-6.5); Hematocrit 24.5 % (39.0-52.0); Hemoglobin 8.2 g/dL (13.0-18.0); Mean Corp Hgb Conc. 33.5 g/dL (33.0-37.0); Mean Corpuscular Hgb 30.1 pg (27.0-31.0); Mean Corpuscular Volume 90.1 fL (80.0-94.0); Mean Platelet Volume 10.5 fL (7.4-10.4); Nucleated Red Blood Cells % 0.6 % (-); Platelet Count 150 10^3/uL (130-400); Red Blood Cell Count 2.72 10^6/uL (4.70-6.10); Red Cell Dist. Width 15.4 % (11.5-14.5); White Blood Cell Count 3.6 10^3/uL (4.8-10.8)
[2024-01-15] MEDS: NSS 500 IV (12:49)
[2024-01-15 13:00] VITALS: BP 117/61
[2024-01-15 13:05] LABS: ALT (SGPT) 57 U/L (0-50); AST (SGOT) 31 U/L (17-59); Albumin 3.8 g/dl (3.5-5.0); Alkaline Phosphatase 38 U/L (38-126); Blood Urea Nitrogen 15 mg/dl (9-20); Calcium 8.8 mg/dl (8.4-10.2); Carbon Dioxide 28 mmol/L (22-30); Chloride 104 mmol/L (98-107); Glucose 99 mg/dl (70-99); Sodium 139 mmol/L (135-145); Total Bilirubin 0.5 mg/dl (0.2-1.3); Total Protein 5.7 g/dl (6.3-8.2); eGFR > 60.00
[2024-01-15 13:16] LABS: Troponin I < 0.012 ng/ml
[2024-01-15 13:39] VITALS: BP 114/61
[2024-01-15 14:00] VITALS: BP 107/54
[2024-01-15 15:00] VITALS: BP 107/59
--- NOTE | 2024-01-15 15:02 | ED.GENMED ---
History of Present Illness
General
Chief Complaint: Breathing Problem
Source: patient, records and spouse
Exam Limitations: none
Time Seen by Provider: 01/15/24 12:04
Nursing documentation reviewed up to this point in time: agreed with
History of Present Illness
History of Present Illness:
Patient is a 63-year-old male who was recently in the hospital and a GI bleeding found to have a duodenal ulcer. Patient required 2 units of blood. When the patient was discharged she felt fine. 2 days ago he woke in the morning felt a pain in
the left infrascapular region. Increased with moving and deep inspiration. Patient denies fever or chills. Patient was taken off his aspirin and Brilinta because of the bleed. Patient denies any history of PE or DVT. Patient denies chest pain,
palpitations or shortness of breath. Patient denies any further GI or symptoms. Patient denies any leg pain or swelling.
Past History
Past History
ED Past Medical History: CAD, HTN, Hypercholesterolemia, NIDDM and Other ([place] Palsy, peptic ulcer disease)
ED Past Surgical History: None
Social History
Tobacco: Former smoker (cigars-1 daily)
Alcohol: None
Personal:
Living: with family
Employment: Employed
Review of Systems
Review of Systems
All Other Systems: ROS reviewed and negative except as documented in HPI and ROS
Constitutional: Reports no symptoms
EENT: Reports no symptoms
Respiratory: Reports no symptoms; Denies cough or trouble breathing
Cardiac: Reports no symptoms; Denies chest pain or palpitations
ABD/GI: Reports no symptoms
: Reports no symptoms
Musculoskeletal: Reports back pain
Skin: Reports no symptoms
Neurological: Reports no symptoms
Hematologic/Lymphatic: Reports no symptoms
Phy Exam
Physical Exam
Physical Exam:
Physical Exam
General: No apparent distress, alert and appropriate, well nourished, well hydrated
HENT: Normocephalic, supple with no lymphadenopathy, no thyromegaly
Eyes: Clear sclera, conjuctiva without injection
Heart: Regular rhythm and rate. No S3, S4. No murmur. No NVD
Lungs: No respiratory distress, no stridor, lung sounds clear and equal bilaterally, chest wall symmetrical and nontender
Abdomen: Soft, nontender, no organomegaly, no CVA tenderness, BS good
Neuro: Alert and oriented x 3, CN II - XII intact, no motor focality, no cerebellar dysfunction
Skin: no rash
Psychiatric: well kept. interactive and cooperative
Extremities: No edema, cyanosis, tenderness
Musculoskeletal: Mild tenderness without lesion in the left infra scapular region medially. No crepitus, deformity or subcutaneous emphysema. Appears to be all muscular.
Scores
Heart Failure Risk
Heart Failure Risk Score: Not Applicable
Heart Score for Chest Pain Patients
STEMI patient?: Not applicable
Withdrawal Assessment of Alcohol
Withdrawal Assessment Completed?: Not applicable
Course
Orders/Labs/Results
Orders:
Orders
01/15/24 11:00
EKG [Electrocardiogram (*1)] Urgent
Reason for Study: Other
Other Reason for Exam: back pain
01/15/24 11:01
EKG- Treatment ONCE
01/15/24 11:55
Cardiac Monitoring- Treatment ONCE
IV Insert/Care/Rem.- Treatment PRN
O2 Therapy [RESP] Urgent
Titrate/Wean O2 to maintain O2 sat greater than (%): 93
Special Instructions: TO MAINTAIN CONTINUOUS O2 SATS >/= 93%
Pulse Ox/cont/shift [RESP] Urgent
Quantity: 1
Special Instructions: continuous pulse ox
01/15/24 12:05
Complete Blood Count/With Diff Urgent
01/15/24 12:17
0.9% Sodium Chloride 500 ml [Nss] 500 ml IV BOLUS
01/15/24 12:18
CT Chest Pe Study Urgent
Comment:
Reason For Exam: leeft pleuritic pain off antiplt
01/15/24 12:47
Comprehensive Metabolic Panel Urgent
Troponin I Urgent
Abnormal Lab Results
01/15/24 01/15/24
12:05 12:47
WBC 3.6 L 10^3/uL
(4.8-10.8)
RBC 2.72 L 10^6/uL
(4.70-6.10)
Hgb 8.2 L g/dL
(13.0-18.0)
Hct 24.5 L %
(39.0-52.0)
RDW 15.4 H %
(11.5-14.5)
MPV 10.5 H fL
(7.4-10.4)
Absolute Lymphs (auto) 0.7 L 10^3/uL
(1.2-3.4)
Immature Gran % 0.6 H %
(0-0.5)
Lymphocytes % 18.6 L %
(20.5-51.1)
ALT 57 H U/L
(0-50)
Total Protein 5.7 L g/dl
(6.3-8.2)
01/15/24 12:05
01/15/24 12:47
Vital Signs
Initial and Last Documented VS:
Initial Vital Signs
Temp Pulse Resp BP Pulse Ox
98.2 F 89 18 114/69 98
01/15/24 10:54 01/15/24 10:54 01/15/24 10:54 01/15/24 10:54 01/15/24 10:54
Last Documented Vital Signs
Temp Pulse Resp BP Pulse Ox
98.2 F 73 17 107/54 99
01/15/24 10:54 01/15/24 14:15 01/15/24 14:15 01/15/24 14:00 01/15/24 14:15
*Radiology
Radiology exam reviewed: radiology read reviewed (No PE)
*Pulse Oximetry
Patient hypoxic: no
*EKG
Interpreted by ED Provider?: Yes
EKG Intrepretation Date: 01/15/24
EKG Intrepretation Time: 15:13
Interpretation: normal
Comparison EKG: no changes
Heart Rate: 81
Rate: normal
Rhythm: sinus
[place]: normal axis
Interval: normal interval
QRS Pattern: normal QRS
Ischemia: no ischemia
*Assembler Crimper Interpretation
Rate: normal
Interpretation: normal
Heart Rate: 81
Rhythm: sinus
*Critical Care Note
Total Time (30-74mins, 75-104mins- exclusive of procedures): Not Applicable
Update Note
Update Note:
It appears this is musculoskeletal. CT was out of caution for PE given lack of any sort of anticoagulation whether platelets are otherwise.
ED Attending Note
-
Portions of this chart may have been created with voice recognition software.� Occasional wrong word or��sound alike� substitutions may have occurred due to the inherent limitations of voice recognition software.
Discharge Plan
Departure
Patient Disposition: Home (Routine Discharge)
Date of Disposition: 01/15/24
Time of Disposition: 15:14
Patient with high blood pressure during this ER visit?: No
Condition: Good
Covid-19: Not Applicable
Discharge Problem:
Musculoskeletal back pain
Instructions: Upper Back Pain (DC), Exercises for Upper Back Pain, Musculoskeletal Pain
Prescriptions:
No Action
aspirin 81 mg Tablet,Delayed Release (Dr/Ec)
81 mg PO DAILY
metformin 1,000 mg Tablet
1,000 mg PO BID
lisinopril 5 mg Tablet
5 mg PO DAILY
ezetimibe [Zetia] 10 mg Tablet
10 mg PO QPM
rosuvastatin [Crestor] 40 mg Tablet
40 mg PO QPM
icosapent ethyl [Vascepa] 1 gram Capsule
2 g PO BID
Jardiance 25 mg Tablet
25 mg PO DAILY
escitalopram oxalate 10 mg Tablet
10 mg PO DAILY 30 Days Qty: 30 0RF
Referrals:
Ángel Ramirez, [Family Provider] - Follow up in 5-7 days
Activity Restrictions/Additional Instructions:
Continue present medications and therapy. You may use heat to the area but avoid lifting more than 10 to 15 pounds for the next week. Acetaminophen 650 mg to 1000 mg every 6 hours for discomfort.
Interventions
Interventions:
*General Assessment Last Done: 01/15/24 10:54
ED- Fall Risk Assessment Last Done: 01/15/24 12:11
*ED COVID-19 Vaccine History Last Done: 01/15/24 10:54
ED- Cardiac Assessment Last Done: 01/15/24 12:11
ED- Pulmonary Assessment Last Done: 01/15/24 12:11
Discharge Date and Time
Print Language: [id number]
== END 2024-01-15 15:39 | disposition home or self-care (01) ==
LOC: EMR 10:52
PROVIDERS: EMERGENCY PHYSICIAN Emergency Medicine; FAMILY PHYSICIAN Internal Medicine Geriatric Medicine
DX: M54.9 Dorsalgia, unspecified (principal); I10 Essential (primary) hypertension; E78.00 Pure hypercholesterolemia, unspecified; E11.9 Type 2 diabetes mellitus without complications; I25.10 Atherosclerotic heart disease of native coronary artery without angina pectoris; Z87.11 Personal history of peptic ulcer disease; Z87.891 Personal history of nicotine dependence
CPT/HCPCS: 99284; 96360; 71275; 80053; 84484; 85025; 93005; Q9967

== ENCOUNTER → 2024-03-02 06:11 | Day surgery (SDC) | payer OTHER, SELFPAY ==
[2024-03-02 07:37] LABS: Glucose - Point of Care 143 mg/dl (70-99)
== END ==
LOC: GI 06:11
PROVIDERS: ATTENDING PHYSICIAN Internal Medicine
DX: Z12.11 Encounter for screening for malignant neoplasm of colon (principal)
CPT/HCPCS: G0121; 82962

== ENCOUNTER → 2024-05-19 15:42 | Outpatient (REF) | payer OTHER, SELFPAY | LOC: HWRCS 15:42 | PROVIDERS: ATTENDING PHYSICIAN Internal Medicine; FAMILY PHYSICIAN Internal Medicine Geriatric Medicine | DX: I10 Essential (primary) hypertension (principal); I25.10 Atherosclerotic heart disease of native coronary artery without angina pectoris | CPT/HCPCS: 93306 ==

== ENCOUNTER → 2024-05-23 07:01 | Outpatient (REF) | payer OTHER, SELFPAY | LOC: DHCBC/DCA 07:01 | PROVIDERS: ATTENDING PHYSICIAN Internal Medicine; FAMILY PHYSICIAN Internal Medicine Geriatric Medicine | DX: I10 Essential (primary) hypertension (principal); I25.10 Atherosclerotic heart disease of native coronary artery without angina pectoris | CPT/HCPCS: 78452; 93017; A9500; J2785 ==

== ENCOUNTER → 2024-06-16 06:58 | Outpatient (REF) | payer OTHER, SELFPAY | LOC: RAD 06:58 | PROVIDERS: ATTENDING PHYSICIAN Internal Medicine; FAMILY PHYSICIAN Internal Medicine Geriatric Medicine | DX: M79.606 Pain in leg, unspecified (principal) | CPT/HCPCS: 93922; 93925 ==

== ENCOUNTER → 2024-06-26 08:59 | Outpatient (REF) | payer OTHER, SELFPAY | LOC: RAD 08:59 | PROVIDERS: ATTENDING PHYSICIAN Surgery Vascular Surgery; FAMILY PHYSICIAN Internal Medicine Geriatric Medicine | DX: Z13.6 Encounter for screening for cardiovascular disorders (principal) | CPT/HCPCS: 76770 ==

== ENCOUNTER → 2024-12-22 07:44 | Outpatient (REF) | payer OTHER, SELFPAY | LOC: RAD 07:44 | PROVIDERS: ATTENDING PHYSICIAN Surgery Vascular Surgery; FAMILY PHYSICIAN Internal Medicine Geriatric Medicine | DX: I73.9 Peripheral vascular disease, unspecified (principal) | CPT/HCPCS: 93922; 93925 ==